=== PATIENT | female | born 1985 | race Caucasian/White ===

== ENCOUNTER → 2017-01-24 | Outpatient (CLI) | payer OTHER ==
[~2017-01-24] MED LIST: GADOBUTROL 7.5 MMOL/7.5 ML (GADAVIST) VIAL IV ONE
--- NOTE | 2017-01-28 12:33 | Diagnostic Imaging Report ---
TECHNIQUE: Utilizing 1.5 Clary magnet, patient was placed in a prone position with 8-channel dual breast coil utilized. Axial STIR precontrasted image and axial T1 fat-sat postcontrast high-resolution images obtained. Sagittal T2-weighted images precontrast, bilaterally, as well. Sagittal vibrant temporal images were obtained pre and post contrast with bolus technique utilized of gadolinium. Images are postcontrast immediately and subsequently for 7 minutes. Pre and post contrasted images are then evaluated with JFrog for evaluation of possible angiogenesis. INDICATION: Abnormal mammogram of the right breast COMPARISON: January 05, 2017 FINDINGS: The bilateral breasts demonstrate severe background glandularity. The bilateral breasts demonstrate mild background enhancement. No significant axillary or internal mammary adenopathy. The visualized upper abdomen is not well evaluated secondary to artifact. A 3 mm reniform T2 hyperintense mass is identified within the left breast at 3 o'clock, middle depth. This is just underlying the skin surface. This is below the color threshold of CAD stream. This is felt to relate to a tiny intramammary lymph node. No additional suspicious mass or non-mass enhancement within the left breast. A 0.7 cm region of non-mass enhancement is identified within the posterior depth of the right breast at 12 o'clock. This demonstrates progressive kinetics. This does not correspond to the mammographic abnormality. A few additional scattered foci of enhancement are seen throughout the right breast. There is no abnormality on this MRI to correspond to the previously questioned mammographic and sonographic abnormality. IMPRESSION: 1. A 0.7 cm region of non-mass enhancement within the posterior depth of the right breast at 12 o'clock is of uncertain etiology. Recommend a second look ultrasound for further evaluation. If this is not identified on second look ultrasound, than it is probably benign, and a followup breast MRI in 6 months is recommended. 2. No MRI abnormality to correspond to the previously questioned mammographic abnormality within the medial right breast or sonographic abnormality noted at 4 o'clock. Given mammographic and sonographic appearance, these findings are probably benign. Therefore, followup right breast mammogram and ultrasound in 6 months is recommended. BI-RADS category 3: Probably benign Followup: 1. Second look ultrasound of the right breast at 12 o'clock is recommended at this time to evaluate the region of non-mass enhancement within the posterior depth of the right breast. 2. Six-month diagnostic right breast mammogram and ultrasound followup to reevaluate the abnormalities noted on prior outside imaging without MRI correlate. Dictated by: Dictated on workstation # [id number]
== END ==
LOC: RAD 11:04
PROVIDERS: ATTEND Nurse Practitioner Family
DX: R92.8 Other abnormal and inconclusive findings on diagnostic imaging of breast (principal)
CPT/HCPCS: 77059